=== PATIENT | male | born 2000 ===

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

== ENCOUNTER → 2024-11-15 | Outpatient (CLI) | payer BC ==
--- NOTE | 2024-11-15 14:47 | US ---
EXAMINATION TYPE: US scrotum with doppler. DATE OF EXAM: 11/15/2024 COMPARISON: NONE CLINICAL INDICATION: Male, 24 years old with history of R60.9 EDEMA UNSPECIFIED; Soreness right test icle TECHNIQUE: Grayscale, color Doppler and spectral Doppler imaging of the scrotum. FINDINGS: EXAM MEASUREMENTS: TESTICLES: Right Testicle: 4.1 x 2.3 x 3.1 cm Left Testicle: 4.3 x 2.7 x 3.2 cm EPIDIDYMIS HEAD: Right Epididymis: 0.8 cm Left Epididymis: 1.2 cm Doppler performed to assess for testicular vascularity; good bilateral color flow and spectral wavefo danielito are seen. There is no evidence of testicular torsion. Presence of hydroceles: small fluid collection bilaterally, 2.2cm right testicle and 3.6cm on the le ft Presence of varicoceles: yes, medially to left testicle IMPRESSION: 1. Small bilateral hydroceles. 2. Left-sided varicocele. 3. No abnormal vascular flow to suggest torsion. [facility], , 11/15/2024 2:45 PM
== END | disposition home or self-care (01) ==
LOC: RADUSWWP 13:48
DX: N43.3 Hydrocele, unspecified (principal); I86.1 Scrotal varices
CPT/HCPCS: 76870; 93975